=== PATIENT | male | born 1945 | race Caucasian/White ===

== ENCOUNTER 2023-11-19 14:25 | Outpatient (OUT) | payer MEDICARE, OTHER, SELFPAY ==
--- NOTE | 2023-11-19 | XR_ITS ---
[address] [address] Patient Name: GAVIN HENSON MRN: [id number] date: 1945 Sex: M Assigned Patient Location: Current Patient Location: Accession/Order Number: [id number] Exam Date: 11/19/2023 14:30 Report Date: 11/20/2023 07:34 At the request of: JACQUELINE LOBATO Procedure: XR foot RT min 3V PROCEDURE: XR foot RT min 3V COMPARISON: None. HISTORY: RIGHT FOOT PAIN FINDINGS: BONES:No acute fracture or dislocation. 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 Mild enthesopathic spurring of the calcaneus at the Achilles and plantar insertions SOFT TISSUES:Negative. No visible soft tissue swelling. EFFUSION:None visible. OTHER: Extensive vascular calcifications XR/XR foot RT min 3V IMPRESSION: Degenerative changes Electronically authenticated by: MARICEL BASS Date: 11/20/2023 07:34
== END 2023-11-19 14:26 | disposition home or self-care (01) ==
LOC: EC 14:27
PROVIDERS: Visit Provider Podiatrist Foot & Ankle Surgery
DX: M20.21 Hallux rigidus, right foot (principal)
CPT/HCPCS: 73630